=== PATIENT | male | born 1995 | race American Indian/Alaskan Native ===

== ENCOUNTER 2021-03-04 15:39 | Emergency (ER) | payer OTHER ==
[~2021-03-04] VITALS: Ht 177.8 cm; Wt 141.5 kg
[~2021-03-04 15:39] MED LIST: ABILIFY5 MG; ACETAMINOPHEN500 MG PO; BENADRYL25 MG PO; FISH OIL 1,0001 EAC2 PO; HALOPERIDOL1 MG; KLONOPIN0.5 MG PO; LITHIUM CARBON300 M1 PO; LORAZEPAM0.5 GM MC; MULTIVITAMINS1 EAC7 PO; NAPROSYN500 MG PO; VENTOLIN HFA18 GM
--- NOTE | 2021-03-06 18:13 | EKG ---
[facility] [address] [facility] [place], [place] [address] Signed Sinus tachycardia Otherwise normal ECG No previous ECGs available Confirmed by LANCE HALL MD ([id number]) on 03/06/2021 6:13:06 PM Electronically Signed By: LANCE HALL MD 03/06/211812 PATIENT NAME: ALOK MCNULTY Electrocardiogram DATE OF : [birth year] PHYSICIAN: LANCE HALL MD REPORT #: [id number] REPORT IS CONFIDENTIAL AND NOT TO BE RELEASED WITHOUT AUTHORIZATION
== END 2021-03-04 21:00 | disposition home or self-care (01) ==
LOC: ED 15:39
DX: F41.9 Anxiety disorder, unspecified (principal); I10 Essential (primary) hypertension; R74.8 Abnormal levels of other serum enzymes; F17.200 Nicotine dependence, unspecified, uncomplicated; Z91.013 Allergy to seafood
CPT/HCPCS: 80053; 85025; 93005; 93010; 99284-25

== ENCOUNTER 2021-04-10 17:26 | Emergency (ER) | payer OTHER ==
[~2021-04-10] VITALS: Ht 177.8 cm; Wt 136.1 kg
--- OUTSIDE RECORDS SUMMARY | 2021-04-10 17:34 | XMS ---
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 Moises has no Care Guidelines for this patient. Alaina VISIT COUNT (12 MO.) 3 [facility] TOTAL 3 NOTE: Visits indicate total known visits. ED/C VISIT TRACKING (12 MO.) 04/10/2021 17:27 [facility] TYPE: Emergency COMPLAINT: - BLOOD PRESSURE PROBLEM 03/04/2021 15:40 [facility] TYPE: Emergency COMPLAINT: - CHEST TIGHTNESS/ SHAKES DIAGNOSES: - Anxiety disorder, unspecified - Other chest pain - Allergy to seafood - Abnormal levels of other serum enzymes - Nicotine dependence, unspecified, uncomplicated - Essential (primary) hypertension 12/10/2020 19:26 [facility] TYPE: Emergency COMPLAINT: - FLU SYMPTOMS INPATIENT VISIT TRACKING (12 MO.) No inpatient visits to display in this time frame [email or web address]
[2021-04-10] MEDS ORDERED: METOPROLOL SUCC25 MG PO (17:42)
[2021-04-10] MEDS ORDERED: ASPIRIN81 MG PO (17:42)
[2021-04-10] MEDS ORDERED: OSTERA TABLET1 EACH PO (17:43)
--- NOTE | 2021-04-12 18:49 | EKG ---
[facility] [address] [facility] [place], [place] [address] Signed Normal sinus rhythm with sinus arrhythmia Rightward axis Borderline ECG When compared with ECG of 04-MAR-2021 15:45, QT has shortened Confirmed by JENNA ROMERO DO ([id number]) on 04/12/2021 6:49:47 PM Electronically Signed By: JENNA ROMERO DO 04/12/21 1849 PATIENT NAME: ALOK MCNULTY DUNCAN Electrocardiogram DATE OF : [birth year] PHYSICIAN: JENNA ROMERO DO REPORT #: [id number] REPORT IS CONFIDENTIAL AND NOT TO BE RELEASED WITHOUT AUTHORIZATION
== END 2021-04-10 19:07 | disposition home or self-care (01) ==
LOC: ED 17:26
DX: I10 Essential (primary) hypertension (principal); R42 Dizziness and giddiness; F17.200 Nicotine dependence, unspecified, uncomplicated; Z91.013 Allergy to seafood; Z79.899 Other long term (current) drug therapy; Z79.82 Long term (current) use of aspirin
CPT/HCPCS: 71045; 80053; 84484; 85025; 93005; 93010; 96374; 99284-25

== ENCOUNTER 2021-09-27 04:10 | Emergency (ER) | payer OTHER ==
[~2021-09-27] VITALS: Ht 177.8 cm; Wt 136.1 kg
[~2021-09-27 04:10] MED LIST changes: +ASPIRIN81 MG PO; +METOPROLOL SUCC25 MG PO; +OSTERA TABLET1 EACH PO
== END 2021-09-27 05:55 | disposition home or self-care (01) ==
LOC: ED 04:10
DX: S81.012A Laceration without foreign body, left knee, initial encounter (principal); F10.129 Alcohol abuse with intoxication, unspecified; Y90.8 Blood alcohol level of 240 mg/100 ml or more; V47.5XXA Car driver injured in collision with fixed or stationary object in traffic accident, initial encounter; I10 Essential (primary) hypertension; F17.200 Nicotine dependence, unspecified, uncomplicated; Z91.013 Allergy to seafood; Z79.899 Other long term (current) drug therapy
CPT/HCPCS: 36415; 70450; 71260; 72125; 73560; 74177; 80053; 81001; 83690; 85025; 99284-25; G0480; Q9967

== ENCOUNTER 2022-06-22 16:33 | Emergency (ER) | payer OTHER ==
[~2022-06-22] VITALS: Ht 177.8 cm; Wt 136.1 kg
== END 2022-06-22 18:22 | disposition home or self-care (01) ==
LOC: ED 16:33
DX: S09.90XA Unspecified injury of head, initial encounter (principal); S63.92XA Sprain of unspecified part of left wrist and hand, initial encounter; S00.31XA Abrasion of nose, initial encounter; Z23 Encounter for immunization; I10 Essential (primary) hypertension; F17.200 Nicotine dependence, unspecified, uncomplicated; Z91.018 Allergy to other foods; V29.408A Other motorcycle driver injured in collision with unspecified motor vehicles in traffic accident, initial encounter
CPT/HCPCS: 70450; 73130; 90471; 90715; 99284-25

== ENCOUNTER 2024-02-27 11:47 | Emergency (ER) | payer OTHER ==
[~2024-02-27] VITALS: Ht 177.8 cm; Wt 97.0 kg
[~2024-02-27 11:47] MED LIST changes: +CLONIDINE HCL0.2 MG PO; +VISTARIL25 MG PO
[2024-02-27] MEDS ORDERED: LISINOPRIL5 MG PO (11:55)
[2024-02-27] MEDS ORDERED: LORazepam 2 MG/ML VIAL IV ONE (12:30)
[2024-02-27 12:53] LABS: BASOPHILS 0.7 % (0-2); EOSINOPHILS 2.4 % (0-6); HEMATOCRIT 48.8 % (35.0-50.0); HEMOGLOBIN 17.5 g/dL (12.0-18.0); LYMPHOCYTES 24.5 % (24-44); MCH 31.5 (27-36); MCV 87.5 fl (81-99); MONOCYTES 6.5 % (0-12); NEUTROPHILS 65.9 % (39-80); PLATELET COUNT 224 K/uL (140-440); RBC 5.58 M/ul (4.3-5.7); RDW 13.7 (10.5-15.0)
[2024-02-27] MEDS ORDERED: LIPITOR20 MG PO (12:58)
[2024-02-27 13:07] LABS: INR 1.09 (0.80-1.30); PROTIME 13.7 Sec (11.2-14.2)
[2024-02-27 13:09] LABS: PARTIAL THROMBOPLASTIN TIME 26.6 Sec (22.9-41.3)
[2024-02-27 13:15] LABS: ALBUMIN 3.8 g/dL (3.4-5.0); ANION GAP 14.8 (7-21); BILIRUBIN, TOTAL 0.5 ng/dL (0.2-1.0); BUN/CREATININE RATIO 7.05 (6.0-28.6); CALCIUM 8.9 mg/dL (8.5-10.1); CREATININE, SERUM 0.85 mg/dL (0.70-1.30); MAGNESIUM 1.9 mg/dL (1.8-2.4); POTASSIUM 3.8 mmol/L (3.5-5.1); PROTEIN, TOTAL 7.6 g/dL (6.4-8.2)
[2024-02-27 14:56] VITALS: BP 129/86
--- NOTE | 2024-02-28 08:09 | EKG ---
[facility] [address] [facility] [place] [address] Signed Normal sinus rhythm Normal ECG When compared with ECG of 15-DEC-2022 14:00, Nonspecific T wave abnormality no longer evident in Inferior leads Confirmed by Manny Pitt MD () on 02/28/2024 8:08:59 AM Electronically Signed By: MANNY PITT MD 02/28/24808 PATIENT NAME: ALOK MCNULTY DUNCAN Electrocardiogram DATE OF : [birth year] PHYSICIAN: MANNY PITT MD REPORT #: [id number] REPORT IS CONFIDENTIAL AND NOT TO BE RELEASED WITHOUT AUTHORIZATION
== END 2024-02-27 14:57 | disposition home or self-care (01) ==
LOC: ED 11:47
PROVIDERS: Emergency Medicine
DX: F41.9 Anxiety disorder, unspecified (principal); R07.89 Other chest pain; I10 Essential (primary) hypertension; F17.200 Nicotine dependence, unspecified, uncomplicated; Z79.899 Other long term (current) drug therapy
CPT/HCPCS: 36415; 71045; 80053; 83735; 83880; 84484; 85025; 85610; 85730; 93005; 96374; 99285-25; J2060

== ENCOUNTER 2024-05-05 13:18 | Emergency (ER) | payer OTHER ==
[~2024-05-05] VITALS: Ht 177.8 cm; Wt 145.0 kg
[~2024-05-05 13:18] MED LIST changes: +LIPITOR20 MG PO; +LISINOPRIL5 MG PO
[2024-05-05 14:38] LABS: BASOPHILS 0.8 % (0-2); EOSINOPHILS 2.4 % (0-6); HEMATOCRIT 49.1 % (35.0-50.0); HEMOGLOBIN 17.3 g/dL (12.0-18.0); LYMPHOCYTES 19.5 % (24-44); MCH 30.8 (27-36); MCHC 35.1 g/dl (30-36); MCV 87.7 fl (81-99); MONOCYTES 6.2 % (0-12); NEUTROPHILS 71.1 % (39-80); PLATELET COUNT 235 K/uL (140-440); RDW 14.2 (10.5-15.0)
[2024-05-05] MEDS ORDERED: NITROGLYCERIN 0.4 MG SUBL SL PRN (14:45)
[2024-05-05] MEDS ORDERED: KETOROLAC TROMETHAMINE 30 MG/ML VIAL IV ONE (14:45)
[2024-05-05 15:00] LABS: ALBUMIN 3.9 g/dL (3.4-5.0); ALBUMIN/GLOBULIN RATIO 0.95 (1.1-2.4); ALKALINE PHOSPHATASE 88 U/L (46-116); ALT (SGPT) 73 U/L (14-59); AST (SGOT) 23 U/L (15-37); BILIRUBIN, TOTAL 0.6 ng/dL (0.2-1.0); BUN/CREATININE RATIO 12.12 (6.0-28.6); CALCIUM 9.7 mg/dL (8.5-10.1); CARBON DIOXIDE 29 mmol/L (21-32); CHLORIDE 103 mmol/L (98-107); CREATININE, SERUM 0.99 mg/dL (0.70-1.30); GLOMERULAR FILTRATION RATE,EST 106 mL/min (>60); UREA NITROGEN 12 mg/dL (7-18)
[2024-05-05 15:26] LABS: INR 1.07 (0.80-1.30); PROTIME 13.5 Sec (11.2-14.2)
[2024-05-05 15:28] LABS: PARTIAL THROMBOPLASTIN TIME 26.8 Sec (22.9-41.3)
[2024-05-05 15:44] LABS: INFLUENZA B NAA NEGATIVE (NEGATIVE); RESPIRATORY SYNCYTIAL VIR NAA NEGATIVE (NEGATIVE)
[2024-05-05] MEDS ORDERED: DOXYCYCLINE HYCLATE 100 MG CAP PO ONE (16:30)
[2024-05-05] MEDS ORDERED: CEFDINIR 300 MG CAP PO ONE (16:30)
[2024-05-05] MEDS ORDERED: DOXYCYCLINE HY100 MG PO (17:08)
[2024-05-05] MEDS ORDERED: CEFDINIR300 MG PO (17:08)
[2024-05-05 17:19] VITALS: BP 140/91
--- NOTE | 2024-05-06 19:29 | EKG ---
[facility] [address] [facility] [place] [address] Signed Normal sinus rhythm Right axis deviation Abnormal ECG No previous ECGs available Confirmed by Gagandeep Botello MD ([id number]) on 05/06/2024 7:29:39 PM Electronically Signed By: GAGANDEEP BOTELLO MD 05/06/241928 PATIENT NAME: ALOK MCNULTY DUNCAN Electrocardiogram DATE OF : [birth year] PHYSICIAN: GAGANDEEP BOTELLO MD REPORT #: [id number] REPORT IS CONFIDENTIAL AND NOT TO BE RELEASED WITHOUT AUTHORIZATION
== END 2024-05-05 17:20 | disposition home or self-care (01) ==
LOC: ED 13:18
PROVIDERS: Emergency Medicine
DX: J18.9 Pneumonia, unspecified organism (principal); I10 Essential (primary) hypertension; E66.01 Morbid (severe) obesity due to excess calories; F17.200 Nicotine dependence, unspecified, uncomplicated; Z79.899 Other long term (current) drug therapy; Z11.52 Encounter for screening for COVID-19
CPT/HCPCS: 36415; 71045; 80053; 83735; 83880; 84484; 85025; 85379; 85610; 85730; 87502; 93005; 93010; 96374; 99285-25; J1885; U0002

== ENCOUNTER 2024-06-19 22:40 | Emergency (ER) | payer OTHER ==
[~2024-06-19] VITALS: Ht 177.8 cm; Wt 139.7 kg
[~2024-06-19 22:40] MED LIST changes: +CEFDINIR300 MG PO; +DOXYCYCLINE HY100 MG PO
[2024-06-19] MEDS ORDERED: TRAMADOL HCL 50 MG TAB PO ONE (23:15)
[2024-06-20 00:20] VITALS: BP 150/90
== END 2024-06-20 00:21 | disposition home or self-care (01) ==
LOC: ED 22:40
DX: S92.511A Displaced fracture of proximal phalanx of right lesser toe(s), initial encounter for closed fracture (principal); I10 Essential (primary) hypertension; F17.200 Nicotine dependence, unspecified, uncomplicated; Z79.899 Other long term (current) drug therapy; W20.8XXA Other cause of strike by thrown, projected or falling object, initial encounter; Y93.B3 Activity, free weights
CPT/HCPCS: 28515; 73630; 99283-25

== ENCOUNTER 2024-09-27 01:16 | Emergency (ER) | payer OTHER ==
[~2024-09-27] VITALS: Ht 180.3 cm; Wt 154.5 kg
[2024-09-27] MEDS ORDERED: HYDROXYZINE HCL25 MG (01:26)
[2024-09-27] MEDS ORDERED: LIDOCAINE & ANTACID 35 ML BTL PO ONE (01:30)
[2024-09-27 02:06] LABS: EOSINOPHILS 4.6 % (0-6); HEMATOCRIT 49.7 % (35.0-50.0); LYMPHOCYTES 26.6 % (24-44); MCH 31.5 (27-36); MCHC 36.2 g/dl (30-36); MONOCYTES 6.5 % (0-12); NEUTROPHILS 61.3 % (39-80); PLATELET COUNT 241 K/uL (140-440); RBC 5.71 M/ul (4.3-5.7); RDW 14.2 (10.5-15.0)
[2024-09-27 02:20] LABS: ALBUMIN 3.9 g/dL (3.4-5.0); ANION GAP 13.7 (7-21); BILIRUBIN, TOTAL 0.6 mg/dL (0.2-1.0); BUN/CREATININE RATIO 14.43 (6.0-28.6); CALCIUM 9.4 mg/dL (8.5-10.1); CREATININE, SERUM 0.97 mg/dL (0.70-1.30); POTASSIUM 3.7 mmol/L (3.5-5.1); PROTEIN, TOTAL 7.8 g/dL (6.4-8.2)
[2024-09-27 02:40] LABS: BILIRUBIN, URINE NEGATIVE (negative); BLOOD/HGB, URINE NEGATIVE (Negative); KETONE, URINE NEGATIVE (Negative); LEUK ESTERASE, URINE NEGATIVE (negative); NITRITE, URINE NEGATIVE (negative)
[2024-09-27] MEDS ORDERED: PROTONIX40 MG PO (02:55)
[2024-09-27] MEDS ORDERED: PANTOPRAZOLE SODIUM 40 MG TABEC PO ONE (03:00)
[2024-09-27 03:07] VITALS: BP 142/99
== END 2024-09-27 03:05 | disposition home or self-care (01) ==
LOC: ED 01:16
PROVIDERS: Emergency Medicine
DX: R10.13 Epigastric pain (principal); I10 Essential (primary) hypertension; F17.200 Nicotine dependence, unspecified, uncomplicated
CPT/HCPCS: 36415; 76705; 80053; 81003; 83690; 85025; 99284-25; A9270

== ENCOUNTER 2024-11-24 16:13 | Emergency (ER) | payer OTHER ==
[~2024-11-24] VITALS: Ht 180.3 cm; Wt 150.0 kg
[~2024-11-24 16:13] MED LIST changes: +HYDROXYZINE HCL25 MG; +PROTONIX40 MG PO
[2024-11-24 16:23] LABS: BASOPHILS 0.8 % (0.2-1.2); EOSINOPHILS 2.8 % (0.8-7.0); LYMPHOCYTES 29.1 % (21.8-53.1); MCH 30.2 PG (25.7-32.2); MCHC 35.3 g/dL (32.3-36.5); MCV 85.4 fL (79.0-92.2); MONOCYTES 6.7 % (5.3-12.2); NEUTROPHILS 60.2 % (34.0-67.9); RBC 5.67 M/uL (4.63-6.08)
[2024-11-24 16:41] LABS: ALT (SGPT) 127.0 U/L (14-59); AST (SGOT) 43.0 U/L (15-37); GLOMERULAR FILTRATION RATE,EST 124.0 mL/min (>60); PROTEIN, TOTAL 7.8 g/dL (6.4-8.2); UREA NITROGEN 10.0 mg/dL (7-18)
[2024-11-24 17:52] LABS: BLOOD/HGB, URINE NEGATIVE (Negative); KETONE, URINE SMALL (Negative); LEUK ESTERASE, URINE NEGATIVE (negative); NITRITE, URINE NEGATIVE (negative)
[2024-11-24 17:59] LABS: BACTERIA, URINE NONE SEEN /hpf (negative); CASTS, URINE NONE SEEN \\lpf; CRYSTALS, URINE NONE SEEN (0-1+); EPITHELIAL CELLS, URINE 0 /lpf (0-1+); REFLEX CULTURE, URINE No (No)
[2024-11-24] MEDS ORDERED: MORPHINE SULFATE 4 MG/ML VIAL IV ONE (19:30)
[2024-11-24] MEDS ORDERED: LACTATED RINGER'S 1,000 ML IV ONE (19:45)
[2024-11-24] MEDS ORDERED: ONDANSETRON ODT8 MG PO (20:24)
[2024-11-24] MEDS ORDERED: ONDANSETRON 4 MG HOME.PACK SL ONE (20:30)
[2024-11-24 21:56] VITALS: BP 148/90
== END 2024-11-24 21:59 | disposition home or self-care (01) ==
LOC: ED 16:13
PROVIDERS: Emergency Medicine
DX: K29.20 Alcoholic gastritis without bleeding (principal); I10 Essential (primary) hypertension; F17.200 Nicotine dependence, unspecified, uncomplicated; Z79.899 Other long term (current) drug therapy
CPT/HCPCS: 36415; 80053; 81001; 83690; 83735; 85025; 96374; 96375; 96376; 99284-25; A9270; J2270; J2405; J7121

== ENCOUNTER 2025-04-29 14:36 | Emergency (ER) | payer OTHER ==
[~2025-04-29] VITALS: Ht 180.3 cm; Wt 153.6 kg
[~2025-04-29 14:36] MED LIST changes: +ONDANSETRON ODT8 MG PO
[2025-04-29] MEDS ORDERED: KLONOPIN0.5 MG PO (14:48)
[2025-04-29] MEDS ORDERED: SLEEP MELATONIN1 MG PO (14:48)
[2025-04-29] MEDS ORDERED: LIPITOR10 MG (14:48)
[2025-04-29 14:54] LABS: BASOPHILS 1.0 % (0.2-1.2); EOSINOPHILS 3.3 % (0.8-7.0); LYMPHOCYTES 35.2 % (21.8-53.1); MCH 29.6 PG (25.7-32.2); MCHC 35.0 g/dL (32.3-36.5); MCV 84.5 fL (79.0-92.2); MONOCYTES 7.5 % (5.3-12.2); NEUTROPHILS 52.8 % (34.0-67.9); RBC 5.82 M/uL (4.63-6.08)
[2025-04-29] MEDS ORDERED: SODIUM CHLORIDE 0.9% 1,000 ML IV PRN (15:00)
[2025-04-29 15:23] LABS: ALT (SGPT) 169.0 U/L (14-59); AST (SGOT) 66.0 U/L (15-37); GLOMERULAR FILTRATION RATE,EST 124.0 mL/min (>60); PROTEIN, TOTAL 7.8 g/dL (6.4-8.2); UREA NITROGEN 5.0 mg/dL (7-18)
[2025-04-29] MEDS ORDERED: LIDOCAINE & ANTACID 35 ML BTL PO ONE (16:00)
[2025-04-29 16:10] VITALS: BP 119/80
== END 2025-04-29 16:15 | disposition home or self-care (01) ==
LOC: ED 14:36
PROVIDERS: Emergency Medicine
DX: K29.20 Alcoholic gastritis without bleeding (principal); F10.90 Alcohol use, unspecified, uncomplicated; I10 Essential (primary) hypertension; K21.9 Gastro-esophageal reflux disease without esophagitis; F17.200 Nicotine dependence, unspecified, uncomplicated; Z79.899 Other long term (current) drug therapy
CPT/HCPCS: 36415; 80053; 83690; 85025; 96361; 96374; 99284-25; J2405; J7030